=== PATIENT | male | born 1975 | race Caucasian/White ===

== ENCOUNTER 2018-05-13 22:53 | Emergency (ER) | payer SELFPAY ==
[2018-05-13] MEDS ORDERED: TDAP ADULT 0.5 ML INJ (BOOSTRIX) IM ONE (23:09)
--- NOTE | 2018-05-13 23:41 | EDPHY ---
H & P Time Seen by Provider: 05/13/18 23:01 HPI/ROS: CHIEF COMPLAINT: Laceration left hand HISTORY OF PRESENT ILLNESS: 42-year-old [id number] male with out-of- date tetanus via private vehicle complaining of accidental laceration to the webspace to the left 1st and 2nd digit. Occurred accidentally shortly prior to arrival he was using a pocket knife. No paresthesia. Notes no motor deficits. PHYSICAL EXAM (Prior to examination, patient consented to physical exam, hands were washed and my usual and customary physical exam procedures followed) 1) GENERAL: Well-developed, well-nourished, alert and oriented. Appears to be in no acute distress. 2) HEAD: Normocephalic 3) HEENT: Pupils equal, round, reactive to light bilaterally. 4) LUNGS: Breathing comfortably. 5) MUSCULOSKELETAL: Left hand in between the 1st and 2nd webspace 3.5 cm well- demarcated linear laceration, deep. There is tendon laceration visualized. Noted weakness with extension at the IP joint and with opposition. 6) SKIN: Laceration left hand measuring 3.5 cm as described above 7) VASCULAR: pulses and cap refill present are brisk 8) NEUROLOGIC: Radial, ulnar, median nerve function intact with no deficits appreciated on exam DIFFERENTIAL DIAGNOSIS: in no particular order including but not limited to fracture, sprain, compartment syndrome Smoking Status: Never smoked Constitutional: Initial Vital Signs Temperature (C) 36.8 C 05/13/18 22:58 Heart Rate 89 05/13/18 22:58 Respiratory Rate 18 05/13/18 22:58 Blood Pressure 138/93 H 05/13/18 22:58 O2 Sat (%) 94 05/13/18 22:58 O2 Delivery Mode Room Air Allergies/Adverse Reactions: No Known Allergies Allergy (Unverified 05/13/18 23:00) Home Medications: Medication Instructions Recorded Cephalexin [Keflex] 500 mg PO TID 7 Days cap 05/13/18 MDM/Departure - MDM Procedures: Procedure: Wound closure in management I explained the indications, risks and benefits for both laceration repair and anesthetic administration. Verbal consent was obtained from the patient and parent. The laceration on the left hand was anesthetized using 0.5% bupivicaine without epinephrine. After anesthetic administered the patient was observed for a period of time and had no apparent adverse effects. The wound was cleaned, prepped, draped in normal sterile fashion and explored to its base. No foreign body seen, no foreign bodies palpated. Tendon laceration noted. Skin edges reapproximated with 5 simple interrupted 5 O Ethilon sutures The wound repair was complex. The procedure was performed by myself. Patient has been informed that scarring will occur, although efforts have been made to minimize this. Procedure: Splint Ortho Glass thumb spica splint was applied by ER business office technician. After application of the splint I returned and re-examined the patient. The splint was adequately immobilizing the joint and distal to the splint the patient's circulation and sensation were intact. Patient shows no signs of compartment syndrome. Was given orthopedic precautions. Medications Given: Discontinued Medications Cephalexin (Keflex 500 Mg Prepack#4) 1 btl TAKEHOME EDNOW ONE PRN Reason: Protocol Stop: 05/13/18 23:43 Last Admin: 05/13/18 23:48 Dose: 1 btl Cephalexin HCl (Keflex) 500 mg PO EDNOW ONE PRN Reason: Protocol Stop: 05/13/18 23:44 Last Admin: 05/13/18 23:48 Dose: 500 mg Diphtheria/Tetanus/Acell Pertussis (Boostrix) 0.5 ml IM .ONCE ONE Stop: 05/13/18 23:10 Last Admin: 05/13/18 23:13 Dose: 0.5 ml ED Course/Re-evaluation: Patient noted to have a laceration to the webspace to the 1st and 2nd digit with noted tendon laceration , possibly including, but not necessarily limited to extensor pollicis longus and abductors pollicis longus. Skin has been reapproximated he has been placed in a splint. Today is Tuesday. He has been started on antibiotics. His tetanus has been updated. 12:01 a.m.: Consultation with on-call hand surgery Dr. Porsche Pickett discussed the laceration which includes full tendon laceration. He agrees with plan of skin closure, antibiotics, tetanus, splinting, follow up in office on Tuesday or Tuesday (today is Tuesday). Discussed this with patient and he feels comfortable with this plan. All questions and concerns addressed by myself. My usual and customary wound precautions instructions provided. - Depart Disposition: Home, Routine, Self-Care Clinical Impression: Laceration of left hand involving tendon Qualifiers: Encounter type: initial encounter Qualified Code(s): S61.412A - Laceration without foreign body of left hand, initial encounter Condition: Good Instructions: Cephalexin (By mouth), Care For Your Stitches (ED), Laceration ( ED) Additional Instructions: See Dr Pickett on Tuesday or Tuesday of this week. Return to the ER if you develop redness, swelling, discharge, warmth to the wound, red streaks going up your arm , or any other symptoms that concern you. Suture removal in 10 days to be done by Dr Pickett Prescriptions: Cephalexin [Keflex] 500 mg PO TID 7 Days cap Referrals: Porsche Pickett MD [Medical Doctor] - 05/15/18
[2018-05-13] MEDS ORDERED: CEPHALEXIN 500MG PREPACK#4 BTL TAKEHOME ONE (23:42)
[2018-05-13] MEDS ORDERED: CEPHALEXIN 500 MG CAP PO ONE (23:43)
[2018-05-14 00:46] VITALS: BP 120/78
--- NOTE | 2018-05-15 17:11 | ASMTCMCOM ---
CM Note CM Note Notes: Received a CM Consult order request re:pt follow up. Spoke w/Luz Maria at Dr Pickett's office at [facility] ([phone]) and she states the patient called into their office this morning and Luz Maria states she is working on getting pt an appt w/Dr Pickett and will continue to communicate w/the patient directly. CM available for further assistance if needed. Date Signed: 05/15/2018 05:10 PM Electronically Signed By:Catalina Boogie RN
== END 2018-05-14 00:46 | disposition home or self-care (01) ==
DX: S61.412A Laceration without foreign body of left hand, initial encounter (principal); Z23 Encounter for immunization; W26.0XXA Contact with knife, initial encounter; Y99.9 Unspecified external cause status